=== PATIENT | female | born 1965 | race Caucasian/White ===

== ENCOUNTER 2016-12-16 11:42 | Emergency (ER) | payer BC ==
[2016-12-16 12:21] LABS: #Basophils 0.1 thou/uL (0.0-0.2); #Eosinphils 0.4 thou/uL (0.0-0.7); #Monocytes 0.5 thou/uL (0.11-0.59); #Neutrophils 5.1 thou/uL (1.40-6.50); %Basophils 0.9 % (0.0-1.0); %Eosinophils 4.9 % (0.0-10.0); %Lymphocytes 24.5 % (21.0-51.0); %Monocytes 6.4 % (0.0-10.0); Hematocrit 44.7 % (36.0-47.0); Mean Platelet Volume 8.5 fL (7.4-10.4); Red Blood Cell (RBC) Count 5.28 mill/uL (4.20-5.40)
[2016-12-16 12:44] LABS: ALT (SGPT) 31 U/L (8-55); AST (SGOT) 26 U/L (5-34); Alkaline Phosphatase 83 U/L (40-150); Anion Gap 9 mmol/L (10-20); BUN (Urea Nitrogen) 12 mg/dL (9.8-20.1); Bilirubin, Total 0.4 mg/dL (0.2-1.2); Calc. Creatinine Clearance 0 mL/min (70-130); Calcium 8.9 mg/dL (7.8-10.44); Carbon Dioxide 31 mmol/L (22-29); Chloride 99 mmol/L (98-107); Estimated GFR-MDRD 50; Globulin 3.2 g/dL (2.4-3.5)
[2016-12-16 12:48] LABS: Troponin I 0.014 ng/mL (< 0.028)
[2016-12-16] MEDS ORDERED: ISOVUE-370 76%-LOCM 1 ML ONE (13:26)
--- NOTE | 2016-12-16 13:37 | CT ---
CT PULMONARY ANGIOGRAM WITH IV CONTRAST AND 3D POSTPROCESSING: Date: 12/16/16 HISTORY: Syncope. FINDINGS: There is good contrast opacification of the pulmonary arterial vasculature without filling defects t o suggest pulmonary embolism. The thoracic aorta is well opacified without aneurysm or dissection. N o pleural or pericardial effusions are identified. No pneumothoraces, focal areas of consolidation, pulmonary nodules, or lung masses are seen. There are degenerative changes in the spine. Upper abdom inal tomograms demonstrate a 2.3 cm exophytic mass from the left anterior renal cortex which does no t meet all CT criteria for a simple cyst. IMPRESSION: 1. No CT evidence of pulmonary embolism. 2. Indeterminate left renal mass. Renal ultrasound is recommended. POS: [facility]
== END 2016-12-16 15:05 | disposition home or self-care (01) ==
LOC: ERS 11:42
DX: R55 Syncope and collapse (principal); I10 Essential (primary) hypertension; E78.00 Pure hypercholesterolemia, unspecified; F17.210 Nicotine dependence, cigarettes, uncomplicated; Z79.899 Other long term (current) drug therapy
CPT/HCPCS: 36415; 71275; 80053; 82553; 84484; 85025; 85379; 93005; 99406

== ENCOUNTER 2022-10-12 07:53 | Outpatient (CLI) | payer BC | END 2022-10-12 07:54 | disposition home or self-care (01) | LOC: RAD-FRANK 07:53 | PROVIDERS: ATTEND Nurse Practitioner Family | DX: R10.11 Right upper quadrant pain (principal); K59.00 Constipation, unspecified | CPT/HCPCS: 74018 ==

== ENCOUNTER 2022-11-05 13:12 | Emergency (ER) | payer BC ==
[2022-11-05 14:17] LABS: #Monocytes 0.5 thou/uL (0.11-0.59); #Neutrophils 11.2 thou/uL (1.40-6.50); %Basophils 0.3 % (0.0-1.0); %Lymphocytes 4.4 % (21.0-51.0); %Monocytes 3.8 % (0.0-10.0); %Neutrophils 91.1 % (42.0-75.0); Hematocrit 45.3 % (36.0-47.0); Hemoglobin 15.3 g/dL (12.0-16.0); Mean Corpuscular HGB CONC 33.8 g/dL (32.0-36.0); Mean Corpuscular Hemoglobin 30.3 pg (27.0-31.0); Mean Corpuscular Volume 89.7 fl (78.0-98.0); Mean Platelet Volume 10.7 fL (7.4-10.4); Platelet Count 168 10x3/uL (130-400); RBC Distribution Width 13.9 % (11.5-14.5); Red Blood Cell (RBC) Count 5.05 mill/uL (4.20-5.40); White Blood Cell (WBC) Count 12.3 10x3/uL (4.8-10.8)
[2022-11-05 14:46] LABS: ALT (SGPT) 11 U/L (8-55); AST (SGOT) 15 U/L (5-34); Albumin 3.7 g/dL (3.5-5.0); Alkaline Phosphatase 76 U/L (40-110); Anion Gap 16 mmol/L (10-20); BUN (Urea Nitrogen) 11 mg/dL (9.8-20.1); Bilirubin, Total 0.5 mg/dL (0.2-1.2); Calc. Creatinine Clearance 0 mL/min (70-130); Calcium 8.6 mg/dL (7.8-10.44); Carbon Dioxide 20 mmol/L (22-29); Chloride 102 mmol/L (98-107); Estimated GFR 69; Globulin 2.8 g/dL (2.4-3.5); Glucose 110 mg/dL (70-105); Lipase 21 U/L (8-78); Potassium 3.2 mmol/L (3.5-5.1); Protein, Total 6.5 g/dL (6.0-8.3); Sodium 135 mmol/L (136-145)
[2022-11-05 15:08] LABS: Bacteria/HPF 3+ HPF (None Seen); Bilirubin Negative (Negative); Blood, Urine 2+ (Negative); CAUTI Indications for Culture Acute Hematuria; Clarity Turbid (Clear); Glucose, Urine (Dipstick) Normal (Negative); Ketone, Urine 20 mg/dL (Negative); Leukocyte 500 Leu/uL (Negative); Nitrite 2+ (Negative); Protein, Urine (Dipstick) 100 mg/dL (Neg-Trace); Specific Gravity, Urine 1.017 (1.002-1.036); Squamous Epithelial 0-3 HPF (0-3); WBC/HPF Greater than 50 HPF (0-3)
[2022-11-05 15:09] LABS: Urine Culture Reflex Yes Yes
[2022-11-05] MEDS ORDERED: cefTRIAXone (ROCEPHIN) 2 GM VIAL ONE (15:49)
== END 2022-11-05 17:30 | disposition home or self-care (01) ==
LOC: ERS 13:12
DX: N10 Acute pyelonephritis (principal); I71.40 Abdominal aortic aneurysm, without rupture, unspecified; I10 Essential (primary) hypertension; E78.5 Hyperlipidemia, unspecified; F17.210 Nicotine dependence, cigarettes, uncomplicated; Z79.82 Long term (current) use of aspirin; Z79.899 Other long term (current) drug therapy
CPT/HCPCS: 36415; 71045; 74176; 80053; 81001; 83605; 83690; 85025; 87040; 87077; 87086; 87149; 87186; 96361; 96365; J0696

== ENCOUNTER 2022-11-08 12:05 | Outpatient (CLI) | payer BC | END 2022-11-08 12:06 | disposition home or self-care (01) | LOC: BICRAD 12:05 | PROVIDERS: ATTEND Internal Medicine Rheumatology | DX: M53.3 Sacrococcygeal disorders, not elsewhere classified (principal); M54.50 Low back pain, unspecified; M47.898 Other spondylosis, sacral and sacrococcygeal region | CPT/HCPCS: 72220 ==

== ENCOUNTER 2022-11-10 08:59 | Emergency (ER) | payer BC ==
[2022-11-10] MEDS ORDERED: cefTRIAXone (ROCEPHIN) 2 GM VIAL ONE (10:04)
[2022-11-10 10:31] LABS: Hematocrit 40.9 % (36.0-47.0); Hemoglobin 14.1 g/dL (12.0-16.0); Mean Corpuscular HGB CONC 34.5 g/dL (32.0-36.0); Mean Corpuscular Volume 89.9 fl (78.0-98.0); Mean Platelet Volume 11.6 fL (7.4-10.4); Platelet Count 206 10x3/uL (130-400); RBC Distribution Width 14.6 % (11.5-14.5); Red Blood Cell (RBC) Count 4.55 mill/uL (4.20-5.40)
[2022-11-10 10:57] LABS: Troponin I 0.011 ng/mL (< 0.028)
[2022-11-10 11:04] LABS: Delete Auto Diff?? YES; Manual Diff?? YES
[2022-11-10 11:50] LABS: ALT (SGPT) 20 U/L (8-55); AST (SGOT) 26 U/L (5-34); Albumin 3.7 g/dL (3.5-5.0); Alkaline Phosphatase 86 U/L (40-110); Anion Gap 15 mmol/L (10-20); BUN (Urea Nitrogen) 10 mg/dL (9.8-20.1); Bilirubin, Total 0.2 mg/dL (0.2-1.2); Calc. Creatinine Clearance 0 mL/min (70-130); Calcium 9.4 mg/dL (7.8-10.44); Carbon Dioxide 27 mmol/L (22-29); Chloride 102 mmol/L (98-107); Estimated GFR 72; Globulin 3.3 g/dL (2.4-3.5); Glucose 112 mg/dL (70-105); Potassium 3.4 mmol/L (3.5-5.1); Sodium 141 mmol/L (136-145)
[2022-11-10 12:06] LABS: Bacteria/HPF None Seen HPF (None Seen); Bilirubin Negative (Negative); Blood, Urine Negative (Negative); CAUTI Indications for Culture Fever or rigors; Clarity Clear (Clear); Glucose, Urine (Dipstick) Normal (Negative); Ketone, Urine Negative (Negative); Leukocyte Negative Leu/uL (Negative); Nitrite Negative (Negative); Protein, Urine (Dipstick) Negative (Neg-Trace); RBC/HPF 0-3 HPF (0-3); Specific Gravity, Urine 1.011 (1.002-1.036); Squamous Epithelial 0-3 HPF (0-3); Urobilinogen Normal mg/dL (Less than 2); WBC/HPF 0-3 HPF (0-3); pH, Urine 6.5 (5.0-9.0)
[2022-11-10 12:08] LABS: Urine Culture Reflex No No
[2022-11-10 12:16] LABS: Band 1 % (5-11); CellaVision Operator ID LAB.GE; Eosinophils 4 % (0-10); Large Platelets 6.1 % (0-5); Lymphocytes 23 % (21-51); Monocytes 1 % (0-10); Neutrophil 69 % (42-75); Platelet Adequacy Comment Platelets Normal; Polychromasia SLIGHT = 2-3 cells HPF (0-2); Reactive Lymphocytes 2 % (0-10); Total Cell Count 114
== END 2022-11-10 12:43 | disposition home or self-care (01) ==
LOC: ERS 08:59
DX: N12 Tubulo-interstitial nephritis, not specified as acute or chronic (principal); R00.1 Bradycardia, unspecified; I10 Essential (primary) hypertension; F17.210 Nicotine dependence, cigarettes, uncomplicated; Z79.899 Other long term (current) drug therapy
CPT/HCPCS: 71045; 80053; 81001; 83605; 84484; 85025; 87040; 87086; 93005; 96365; J0696